=== PATIENT | female | born 1955 | race Hispanic/Latino ===

== ENCOUNTER 2018-02-18 09:00 | Emergency (ER) | payer OTHER ==
[2018-02-18] MEDS ORDERED: NA CHLORIDE 0.9% 1,000 ML ONE (09:08)
[2018-02-18] MEDS ORDERED: FENTANYL CITR 100 MCG/2 ML ONE (09:08)
[2018-02-18] MEDS ORDERED: TETANUS & DIPHTHERIA TOX,ADULT 0.5 ML VIAL ONE (09:12)
[2018-02-18 09:27] LABS: Absolute Lymphocytes (CBC) 2.4 K/uL (0.7-4.9); Absolute Monocytes 0.6 K/uL (0.1-1.3); Absolute Neutrophil 5.5 K/uL (1.8-8.0); Basophils % 0.9 % (0-1.3); Eosinophils % 1.3 % (0-4.4); Hematocrit 47.3 % (36.0-45.0); Lymphocytes % 27.7 % (15.3-44.8); MCH 28.9 pg (27.0-35.0); MCV 89.1 fL (80-100); RBC Red Blood Cell Count 5.31 M/uL (3.86-4.86)
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
[2018-02-18 09:52] LABS: Bicarbonate 25 mEq/L (21-31); Glucose Level 130 mg/dL (65-120); Potassium 3.6 mEq/L (3.6-5.0); Sodium Level 136 mEq/L (135-145)
[2018-02-18 09:53] LABS: BUN Blood Urea Nitrogen 18 mg/dL (6-20)
[2018-02-18 10:27] VITALS: TEMP 97.9
[2018-02-18 10:31] VITALS: BP 158/74; O2SAT 97
== END 2018-02-18 10:24 | disposition short-term general hospital (02) ==
LOC: ER 09:00
DX: T20.20XA Burn of second degree of head, face, and neck, unspecified site, initial encounter (principal); T31.0 Burns involving less than 10% of body surface; X10.2XXA Contact with fats and cooking oils, initial encounter; Y93.G3 Activity, cooking and baking; Y92.000 Kitchen of unspecified non-institutional (private) residence as the place of occurrence of the external cause; I10 Essential (primary) hypertension
CPT/HCPCS: 36415; 80048; 85025; 90714; 96361; 96374; 99285; J3010; J7030

== ENCOUNTER 2020-03-10 11:03 | Emergency (ER) | payer OTHER ==
[2020-03-10] MEDS ORDERED: MAGNE/ALUM HYDROXD 30 ML UCUP ONE (12:02)
[2020-03-10] MEDS ORDERED: LIDOCAINE VISCOUS 2% SOLN 15 ML UDC ONE (12:02)
[2020-03-10 12:17] LABS: Absolute Lymphocytes (CBC) 1.3 K/uL (0.7-4.9); Basophils % 0.8 % (0-1.3); Hematocrit 42.9 % (36.0-45.0); Lymphocytes % 13.8 % (15.3-44.8); MPV 8.5 fL (7.6-11.3)
--- OUTSIDE RECORDS SUMMARY | 2020-03-10 12:17 | XMS REPORT ---
:1955 Author Organization [facility] t Address [address] [place] [address] Dr. Bolaños [address] [place] [id number] Care Team Providers Name Role Phone Unavailable Unavailable Unavailable Problems This patient has no known problems. Allergies, Adverse Reactions, Alerts This patient has no known allergies or adverse reactions. Medications This patient has no known medications. Procedures This patient has no known procedures. Results This patient has no known results.
--- NOTE | 2020-03-10 12:35 | RAD REPORT ---
EXAM DESCRIPTION: RAD - Chest Single View - 03/10/2020 11:51 am CLINICAL HISTORY: epigastric pain COMPARISON: July 2009 TECHNIQUE: AP portable chest image was obtained 03/10/2020 11:51 am . FINDINGS: Lung volumes are low. No peripheral mass or consolidation. No significant failure or volum e overload. No hilar mass or mediastinal mass suspected. Interstitial pattern is prominent in part due to shallow inspiration. A minimal interstitial edema or infiltrate cannot be excluded. Heart and vasculature are normal. No measurable pleural effusion and no pneumothorax. No acute bony abnormality seen. No acute aortic findings suspected. IMPRESSION: No focal mass or consolidation peer Prominence of the interstitial pattern believed to be shallow inspiration artifact. Minimal interstit ial edema or infiltrate not excluded.
[2020-03-10 12:49] LABS: ALT/SGPT 22 U/L (12-78); AST/SGOT 23 U/L (15-37); Albumin 3.5 g/dL (3.4-5.0); Alkaline Phosphatase 80 U/L (45-117); BUN Blood Urea Nitrogen 12 mg/dL (7-18); Bicarbonate 25 mmol/L (21-32); Bilirubin Direct 0.2 mg/dL (0-0.2); Bilirubin Total 0.6 mg/dL (0.2-1.0); Glucose Level 103 mg/dL (74-106); Lipase 86 U/L (73-393); Potassium 3.8 mmol/L (3.5-5.1); Protein, Total 7.1 g/dL (6.4-8.2); Sodium Level 142 mmol/L (136-145); Troponin (Emerg Dept Use Only) < 0.02 ng/mL (0.0-0.045)
--- NOTE | 2020-03-10 13:01 | RAD REPORT ---
EXAM DESCRIPTION: CT - Angio Aorta For Dissection - 03/10/2020 12:44 pm CLINICAL HISTORY: Chest pain radiating to the back. epigastric and upper back pain COMPARISON: No comparisons TECHNIQUE: CT angiography of the aorta was performed with MIPs. All CT scans are performed using dose optimization technique as appropriate and may include automated exposure control or mA/KV adjustment according to patient size. FINDINGS: A left aortic arch is present with bovine branching pattern of the great vessels.No acute aortic finding is seen such as aneurysm, penetrating ulcer or dissection. The celiac axis, SMA, ASIA and renal arteries are patent. No evidence of pulmonary embolism. The lungs are clear. The liver demonstrates no focal mass or biliary dilatation.The spleen, pancreas, adrenal glands and k idneys are within normal limits for arterial phase imaging. No bowel obstruction, free fluid or abscess.No pathologic enlarged lymphadenopathy identified. No fracture or worrisome bone lesion seen. IMPRESSION: No acute aortic finding is demonstrated.
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
--- NOTE | 2020-03-10 13:30 | ER ---
Nurse's Notes [facility] Name: Karma Liu Age: 64 yrs Sex: Female : 1955 Arrival Date: 03/10/2020 Time: 11:07 Bed 14 Private MD: Diagnosis: Upper abdominal pain, unspecified;Gastritis, unspecified Presentation: 03/10 11:25 Chief complaint: Patient states: sharp, intermittent epigastric pain and pain to upper ss back across shoulders that began 2 days ago. Is worse today. Coronavirus screen: Proceed with normal triage. Patient denies a cough. Patient denies shortness of breath or difficulty breathing. Patient denies measured and/or subjective temperature greater than 100.4F prior to today's visit. Patient denies travel on a cruise ship or to a country the [facility] currently lists as an affected area. Patient denies contact with known and/or suspected case of COVID-19. Ebola Screen: Patient denies exposure to infectious person. Patient denies travel to an Ebola-affected area in the 21 days before illness onset. Initial Sepsis Screen: Does the patient meet any 2 criteria? No. Patient's initial sepsis screen is negative. Does the patient have a suspected source of infection? No. Patient's initial sepsis screen is negative. Risk Assessment: Do you want to hurt yourself or someone else? Patient reports no desire to harm self or others. Onset of symptoms was March 08, 2020. 11:25 Method Of Arrival: Ambulatory 11:25 Acuity: ANEESH 3 ss Historical: - Allergies: 11:27 NKA; ss - Home Meds: 11:27 losartan Oral once daily [Active]; ss - PMHx: 11:27 Hypertension; ss - PSHx: 11:27 Hysterectomy; Cholecystectomy; ss - Immunization history:: Adult Immunizations up to date. - Social history:: Smoking status: Patient denies any tobacco usage or history of. - Family history:: not pertinent. - Hospitalizations: : No recent hospitalization is reported. Screenin:51 Abuse screen: Denies threats or abuse. Nutritional screening: No deficits noted. Tuberculosis screening: No symptoms or risk factors identified. Fall Risk None identified. Assessment: 11:55 General: Appears in no apparent distress. Behavior is calm, cooperative. Pain: Complains of pain in xyphoid area Pain radiates to left scapular area, right scapular area and thoracic area Pain began 2-3 days ago. Alleviated by nothing. Aggravated by eating. Neuro: Level of Consciousness is awake, alert, Oriented to person, place, time, situation. Cardiovascular: Denies chest pain, Heart tones S1 S2 present Capillary refill < 3 seconds Patient's skin is warm and dry. Pulses are palpable in right radial artery and left radial artery. Respiratory: Airway is patent Respiratory effort is even, unlabored, Respiratory pattern is regular, symmetrical, Denies shortness of breath. GI: Bowel sounds present X 4 quads. Abd is non tender X 4 quads Reports epigastric pain, Patient currently denies nausea, vomiting. : No signs and/or symptoms were reported regarding the genitourinary system. EENT: No signs and/or symptoms were reported regarding the EENT system. Derm: No signs and/or symptoms reported regarding the dermatologic system. Musculoskeletal: No signs and/or symptoms reported regarding the musculoskeletal system. 12:25 Reassessment: Pt to CT scan at this time via . 12:45 Reassessment: Pt returned from CT scan. Vital Signs: 11:25 BP 147 / 72; Pulse 83; Resp 15; Temp 97.9(TE); Pulse Ox 96% on R/A; Weight 86.18 kg; Height 5 ft. 4 in. (162.56 cm); Pain 4/10; 12:00 BP 127 / 65; Pulse 66; Resp 11; Pulse Ox 97% ; ah 13:00 BP 128 / 68; Pulse 68; Resp 14; Pulse Ox 97% ; ah 11:25 Body Mass Index 32.61 (86.18 kg, 162.56 cm) ED Course: 11:07 Patient arrived in ED. mr 11:26 Triage completed. ss 11:27 Arm band placed on right wrist. ss 11:28 Pritesh Eaton MD is Attending Physician. rn 11:39 Aminah Francis, MILLY is Primary Nurse. 11:50 Inserted saline lock: 20 gauge in right forearm, using aseptic technique. Patient ah maintains SpO2 saturation greater than 95% on room air. 11:52 XRAY Chest (1 view) In Process Unspecified. EDMS 12:44 CT Aorta for Dissection In Process Unspecified. EDMS 13:29 Bryan Elizalde MD is Referral Physician. rn 13:52 Patient has correct armband on for positive identification. Placed in gown. Call light in reach. cro on. Pulse ox on. NIBP on. 13:52 No provider procedures requiring assistance completed. IV discontinued, intact, bleeding controlled, No redness/swelling at site. Pressure dressing applied. Administered Medications: 12:00 Drug: GI Cocktail without - (Maalox Suspension 30 ml, Lidocaine Liquid 2 % 15 ah ml) Route: PO; 13:00 Follow up: Response: No adverse reaction Outcome: 13:29 Discharge ordered by . rn 13:50 Discharged to home ambulatory. 13:50 Condition: good 13:50 Discharge instructions given to patient, Instructed on discharge instructions, follow up and referral plans. Demonstrated understanding of instructions, follow-up care. 13:56 Patient left the ED. Signatures: Dispatcher [employer] [facility] Mirian Hardwick Roman, MD MD rn Smirch, Shelby, RN RN ss Harris, Amy, RN RN
[2020-03-10 14:12] VITALS: TEMP 97.9
[2020-03-10 14:13] VITALS: O2SAT 97
[2020-03-10 14:14] VITALS: BP 128/68
--- NOTE | 2020-03-11 07:02 | EKG ---
Test Date: 2020-03-10 Test Time: 11:47:06 Florist Designer: MALLIKA MEASUREMENT RESULTS: Intervals: Rate: 63 VT: 186 QRSD: 90 QT: 418 QTc: 427 [place]: P: 43 VT: 186 QRS: 8 T: 44 INTERPRETIVE STATEMENTS: Normal sinus rhythm Normal ECG Compared to ECG 08/14/2009 09:06:57 Sinus bradycardia no longer present Electronically Signed On 03-11-20 07:00:15 CDT by Shayan Simmons
== END 2020-03-10 13:56 | disposition home or self-care (01) ==
LOC: ER 11:03
DX: K29.70 Gastritis, unspecified, without bleeding (principal); I10 Essential (primary) hypertension
CPT/HCPCS: 93005; 85025; 80048; 36415; 82565; 80076; 84484; 83690; 71275; 74175; 71045; Q9967; 99285

== ENCOUNTER → 2023-12-29 | Emergency (ER) | payer OTHER ==
[~2023-12-29] MED LIST: DIPHENHYDRAMINE 50 MG/ML VIAL ONE; EPINEPHRINE 1 MG/ML VIAL ONE; FAMOTIDINE 20 MG/2 ML VIAL IV ONE; METHYLPREDNISOLONE 125 MG INJ ONE
--- OUTSIDE RECORDS SUMMARY | 2023-12-29 09:12 | XMS REPORT | Continuity of Care Document ---
Author Name Unknown Address [address] [place] [address] thconnect Address [address] [place] [address] Care Team Providers Care Pipe Layer Name Role Phone Unavailable Unavailable Unavailable
[2023-12-29 09:57] LABS: Absolute Lymphocytes (CBC) 2.5 K/uL (0.7-4.9); Basophils % 0.4 % (0-1.3); Hematocrit 46.2 % (36.0-45.0); Lymphocytes % 38.3 % (15.3-44.8); MCV 89.3 fL (80-100); MPV 8.9 fL (7.6-11.3); Platelets 359 thou/uL (152-406); RBC Red Blood Cell Count 5.18 M/uL (3.86-4.86)
[2023-12-29 10:10] LABS: Anion Gap 9.4 mEq/L (5.0-15.0); Potassium 3.4 mEq/L (3.5-5.1)
--- NOTE | 2023-12-29 12:02 | ER ---
Nurse's Notes [facility] Name: Karma Liu Age: 68 yrs Sex: Female : 1955 Arrival Date: 12/29/2023 Time: 09:09 Bed 11 Private MD: Diagnosis: Anaphylaxis;Penicillin allergy Presentation: 12/28 09:09 Method Of Arrival: Wheelchair rs5 09:10 Acuity: ANEESH 1 aa5 09:10 Onset of symptoms was December 29, 2023. aa5 09:10 Chief complaint: Pt's states "she had dental work yesterday and was prescribed aa5 amoxicillin, she took it this morning and now she can barely speak because she says her throat is swollen". Lip swelling noted, pt's skin is flushed, pt's voice is soft. MD to bedside. Coronavirus screen: At this time, the client does not indicate any symptoms associated with coronavirus-19. Ebola Screen: Patient denies travel to an Ebola-affected area in the 21 days before illness onset. Onset: The symptoms/episode began/occurred acutely. Anaphylaxis evaluation, lip swelling noted, pt reports feels like throat is swollen. Initial Sepsis Screen: Does the patient meet any 2 criteria? No. Patient's initial sepsis screen is negative. Does the patient have a suspected source of infection? No. Patient's initial sepsis screen is negative. Risk Assessment: Do you want to hurt yourself or someone else? Patient reports no desire to harm self or others. 09:10 Method Of Arrival: Wheelchair aa5 Historical: - Allergies: 09:10 Amoxicillin; aa5 - PMHx: 09:10 Hypertensive disorder; Hypercholesterolemia; aa5 - Immunization history:: Adult Immunizations unknown. - Social history:: Smoking status: Patient denies any tobacco usage or history of. Screenin:20 [facility] ED Fall Risk Assessment (Adult) History of falling in the last 3 months, rs5 including since admission No falls in past 3 months (0 pts) Confusion or Disorientation No (0 pts) Intoxicated or Sedated No (0 pts) Impaired Gait No (0 pts) Mobility Assist Device Used No (0 pt) Altered Elimination No (0 pt) Score/Fall Risk Level 0 - 2 = Low Risk Oriented to surroundings, Maintained a safe environment. Abuse screen: Denies threats or abuse. Nutritional screening: No deficits noted. Tuberculosis screening: No symptoms or risk factors identified. Assessment: 09:10 General: Appears distressed, uncomfortable, Behavior is agitated, anxious. Pain: Denies rs5 pain. Neuro: Level of Consciousness is awake, alert, obeys commands, Oriented to person, place, time, situation. Cardiovascular: Rhythm is regular. Respiratory: Airway is patent Respiratory effort is labored, Respiratory pattern is symmetrical, GI: Abdomen is round non-distended, Abd is soft and non tender X 4 quads. : No signs and/or symptoms were reported regarding the genitourinary system. EENT: No signs and/or symptoms were reported regarding the EENT system. Derm: Skin is intact, Skin is red, pt states "I feel itchy all over". Musculoskeletal: Circulation, motion, and sensation intact. 09:25 Reassessment: Patient states feeling better. Patient states symptoms have improved. rs5 Cardiovascular: Rhythm is regular. Respiratory: Respiratory effort is even, unlabored, Respiratory pattern is regular, symmetrical. Derm: Skin is intact, Skin is pink, warm \\T\\ dry. Musculoskeletal: Circulation, motion, and sensation intact. Musculoskeletal: Range of motion: limited in all extremities. 09:38 Reassessment: No changes from previously documented assessment. rs5 11:05 Reassessment: Patient and/or family updated on plan of care and expected duration. Pain rs5 level reassessed. Patient is alert, oriented x 3, equal unlabored respirations, skin warm/dry/pink. Patient denies pain at this time. Patient states feeling better. Patient states symptoms have improved. 11:38 Reassessment: Patient is alert, oriented x 3, equal unlabored respirations, skin aa5 warm/dry/pink. Patient states feeling better. Patient states symptoms have improved. Pt reports tongue and lip swelling have decreased, reports feet feel itchy, MD was notified. Pt's family at bedside. . 12:16 Reassessment: No changes from previously documented assessment. rs5 Vital Signs: 09:10 BP 127 / 83; Pulse 80; Resp 16 S; Temp 98(TE); Pulse Ox 96% on R/A; Weight 79.38 kg aa5 (R); Height 5 ft. 3 in. (R); 09:22 BP 127 / 83 RA Sitting (auto/reg); Pulse 98 MON; Resp 22 S; Temp 97.6(TE); Pulse Ox 97% jg11 on R/A; 09:41 BP 130 / 82; Pulse 80; Resp 19; Temp 97.7(O); Pulse Ox 98% on R/A; rs5 11:15 BP 120 / 73; Pulse 71; Resp 18; Pulse Ox 99% on R/A; rs5 12:16 BP 122 / 75; Pulse 76; Resp 18; Pulse Ox 99% on R/A; rs5 09:10 Body Mass Index 31.00 (79.38 kg, 160.02 cm) aa5 ED Course: 09:10 Patient arrived in ED. mg5 09:10 Danial Yanes DO is Attending Physician. ms3 09:10 Inserted saline lock: 20 gauge in left antecubital area, using aseptic technique. Blood rs5 collected. 09:10 Arm band placed on Patient placed in an exam room, on a stretcher. aa5 09:17 Inserted saline lock: 22 gauge in left hand, using aseptic technique. rs5 09:20 No provider procedures requiring assistance completed. rs5 09:20 Patient has correct armband on for positive identification. Placed in gown. Bed in low rs5 position. Call light in reach. Side rails up X2. 09:33 Magdy Murphy, RN is Primary Nurse. rs5 09:36 Triage completed. aa5 09:49 EKG done. jg11 12:00 Jason Calixto DO is Referral Physician. ms3 12:17 IV discontinued, intact, bleeding controlled, No redness/swelling at site. Pressure rs5 dressing applied. Administered Medications: 09:11 Drug: MethylPrednisoLONE IVP 125 mg IVP once Route: IVP; Site: left antecubital; rs5 09:22 Follow up: Response: No adverse reaction rs5 09:11 Drug: diphenhydrAMINE IVP 50 mg IVP once Route: IVP; Site: left antecubital; rs5 09:22 Follow up: Response: No adverse reaction rs5 09:11 Drug: Famotidine IVP 20 mg IVP once; dilute with 10 mL 0.9% NaCl; give over 2 minutes rs5 Route: IVP; Site: left antecubital; 09:22 Follow up: Response: No adverse reaction rs5 09:17 Drug: EPINEPHrine 1:1000 Sub-Q 1:1,000 0.3 ml Sub-Q once; GIVE IM {Note: given to right aa5 deltoid per MD VO. .} Route: Sub-Q; Site: left upper arm; 09:30 Follow up: Response: No adverse reaction rs5 Medication: 09:41 VIS not applicable for this client. rs5 Outcome: 12:01 Discharge ordered by MD. ms3 12:17 Discharged to home ambulatory, rs5 12:17 Condition: stable 12:17 Discharge instructions given to patient, family, Instructed on discharge instructions, follow up and referral plans. medication usage, Demonstrated understanding of instructions, follow-up care, medications, 12:17 Patient left the ED. rs5 Signatures: Tricia Villarreal, RN RN aa5 Danial Yanes DO DO ms3 Magdy Murphy RN RN rs5 Saskia Munguia 5 Otto Donovan jg11 Corrections: (The following items were deleted from the chart) 09:34 09:11 EPINEPHrine 1:1000 Sub-Q 1:1,000 0.3 ml Sub-Q in left upper arm rs5 aa5 09:35 09:17 EPINEPHrine 1:1000 Sub-Q 1:1,000 0.3 ml Sub-Q in left upper arm aa5 aa5
--- NOTE | 2023-12-29 12:02 | EDPHYS ---
Physician Documentation [facility] Name: Karma Liu Age: 68 yrs Sex: Female : 1955 Arrival Date: 12/29/2023 Time: 09:09 Bed 11 Private MD: ED Physician Danial Yanes HPI: 12/28 09:26 This 68 yrs old Female presents to ER via Unassigned with complaints of ms3 Allergic Reaction, Breathing Difficulty. 09:26 68-year-old female with past medical history of hypertension hyperlipidemia presents to [facility] the emergency department for itching, swelling lips, difficulty swallowing, shortness of breath that began approximate 20 minutes prior to arrival after taking an amoxicillin tablet. Patient had tooth removed yesterday and was given a prescription for amoxicillin. 10 minutes after taking the tablet of amoxicillin patient began having itching, swelling, difficulty swallowing and shortness of breath. Patient denies any pain. Patient denies any alleviating or inciting factors. Historical: - Allergies: 09:10 Amoxicillin; aa5 - PMHx: 09:10 Hypertensive disorder; Hypercholesterolemia; aa5 - Immunization history:: Adult Immunizations unknown. - Social history:: Smoking status: Patient denies any tobacco usage or history of. ROS: 09:26 Constitutional: Negative for fever, and chills. Neck: Negative for injury, pain, and ms3 swelling, Cardiovascular: Negative for chest pain, and palpitations. Respiratory: Negative for shortness of breath, cough, wheezing, and pleuritic chest pain, Abdomen/GI: Negative for abdominal pain, nausea, vomiting, diarrhea, and constipation, : MS/Extremity: Negative for injury and deformity, : ENT: Positive for Tongue swelling, : Skin: Positive for rash, Exam: :26 Constitutional: This is a well developed, well nourished patient who is awake, alert, ms3 and in no acute distress. Head/Face: Normocephalic, atraumatic. Chest/axilla: Normal chest wall appearance and motion. Nontender with no deformity. Cardiovascular: Regular rate and rhythm with a normal S1 and S2. No gallops, murmurs, or rubs. Normal PMI, no JVD. No pulse deficits. Respiratory: Lungs have equal breath sounds bilaterally, clear to auscultation and percussion. No rales, rhonchi or wheezes noted. No increased work of breathing, no retractions or nasal flaring. 09:26 ENT: Posterior pharynx: swelling, that is moderate, Tongue swelling. 09:26 Skin: Appearance: Color: erythematous, 09:40 ECG was reviewed by the Attending Physician. ms3 Vital Signs: 09:10 BP 127 / 83; Pulse 80; Resp 16 S; Temp 98(TE); Pulse Ox 96% on R/A; Weight 79.38 kg aa5 (R); Height 5 ft. 3 in. (R); 09:22 BP 127 / 83 RA Sitting (auto/reg); Pulse 98 MON; Resp 22 S; Temp 97.6(TE); Pulse Ox 97% jg11 on R/A; 09:41 BP 130 / 82; Pulse 80; Resp 19; Temp 97.7(O); Pulse Ox 98% on R/A; rs5 11:15 BP 120 / 73; Pulse 71; Resp 18; Pulse Ox 99% on R/A; rs5 12:16 BP 122 / 75; Pulse 76; Resp 18; Pulse Ox 99% on R/A; rs5 09:10 Body Mass Index 31.00 (79.38 kg, 160.02 cm) aa5 MDM: 09:22 Patient medically screened. ms3 09:26 Differential diagnosis: anaphylaxis, angioedema, bronchospasm. ms3 12:01 Data reviewed: vital signs, nurses notes, lab test result(s), and as a result, I will ms3 discharge patient. I considered the following discharge prescriptions or medication management in the emergency department Medications were administered in the Emergency Department. See MAR. Historians other than the Patient: Spouse/Significant Other: Patient's . Care significantly affected by the following chronic conditions: Hypertension, HLD. Counseling: I had a detailed discussion with the patient and/or guardian regarding the historical points, exam findings, and any diagnostic results supporting the discharge/admit diagnosis, lab results, the need for outpatient follow up, to return to the emergency department if symptoms worsen or persist or if there are any questions or concerns that arise at home. Special discussion: I discussed with the patient/guardian in detail that at this point there is no indication for admission to the hospital. It is understood, however, that if the symptoms persist or worsen the patient needs to return immediately for re-evaluation. ED course: On reevaluation patient symptoms have improved, patient is alert and oriented x 4, no apparent distress, nontoxic-appearing, speaking full sentences. Patient to follow-up with primary care physician 2 to 3 days. Patient understands and agrees with plan. All questions were answered. Return precautions discussed include worsening symptoms, or any other concerns. 12/28 09:47 Order name: CBC with Diff; Complete Time: 10:13 ms3 12/28 09:47 Order name: BMP; Complete Time: 10:13 ms3 12/28 09:47 Order name: EKG; Complete Time: 09:47 ms3 12/28 09:47 Order name: EKG - Nurse/Tech; Complete Time: :48 ms3 EC:40 Rate is 84 beats/min. Rhythm is regular. Right axis deviation noted. KS interval is ms3 normal. QRS interval is normal. Clinical impression: NSR w/ Non-specific ST/T Changes. Interpreted by me. Reviewed by me. Administered Medications: 09:11 Drug: MethylPrednisoLONE IVP 125 mg IVP once Route: IVP; Site: left antecubital; rs5 09:22 Follow up: Response: No adverse reaction rs5 09:11 Drug: diphenhydrAMINE IVP 50 mg IVP once Route: IVP; Site: left antecubital; rs5 09:22 Follow up: Response: No adverse reaction rs5 09:11 Drug: Famotidine IVP 20 mg IVP once; dilute with 10 mL 0.9% NaCl; give over 2 minutes rs5 Route: IVP; Site: left antecubital; 09:22 Follow up: Response: No adverse reaction rs5 09:17 Drug: EPINEPHrine 1:1000 Sub-Q 1:1,000 0.3 ml Sub-Q once; GIVE IM {Note: given to right aa5 deltoid per MD VO. .} Route: Sub-Q; Site: left upper arm; 09:30 Follow up: Response: No adverse reaction rs5 Disposition Summary: 12/29/23 12:01 Discharge Ordered Notes: Location: Home ms3 Condition: Stable ms3 Diagnosis - Anaphylaxis ms3 - Penicillin allergy ms3 Followup: ms3 - With: Jason Calixto, DO - When: 2 - 3 days - Reason: Recheck today's complaints Discharge Instructions: - Discharge Summary Sheet ms3 - Anaphylactic Reaction, Adult ms3 Forms: - Medication Reconciliation Form ms3 - Thank You Letter ms3 - Antibiotic Education ms3 - Prescription Opioid Use ms3 - Patient Portal Instructions ms3 - Leadership Thank You Letter ms3 Prescriptions: - Prednisone 20 mg Oral Tablet - take 3 tablets ORAL route once daily for 5 days; 15 tablet; Refills: 0, Product ms3 Selection Permitted Critical care time excluding procedures: 12:01 Critical care time: Bedside Care: 30 minutes, Family Intervention: 5 minutes. Total ms3 time: 35 minutes Signatures: Dispatcher [employer] EDTricia Lu, RN RN aa5 Danial Yanes, DO ms3 Magdy Murphy RN RN rs5
[2023-12-29 12:26] VITALS: TEMP 97.7
[2023-12-29 12:54] VITALS: BP 122/75; O2SAT 99
== END ==
LOC: ER 09:09
DX: T88.6XXA Anaphylactic reaction due to adverse effect of correct drug or medicament properly administered, initial encounter (principal); T36.0X5A Adverse effect of penicillins, initial encounter; Z88.0 Allergy status to penicillin; I10 Essential (primary) hypertension
CPT/HCPCS: 93005; 85025; 80048; 36415; 96375; 96372; 96374; 99284; J1200; J0171; J2930

== ENCOUNTER 2024-10-06 17:49 | Inpatient (IN) | payer OTHER ==
--- OUTSIDE RECORDS SUMMARY | 2024-10-06 17:51 | XMS REPORT | Continuity of Care Document ---
Author Name Unknown Address [address] [place] [address] thconnect Address [address] [place] [address] Care Team Providers Care Gold Wheel Blocker And Polisher Name Role Phone Unavailable Unavailable Unavailable
[2024-10-06 18:39] LABS: Absolute Basophils 0.1 K/uL (0-0.5); Absolute Eosinophils 0.1 K/uL (0-0.5); Absolute Lymphocytes (CBC) 1.3 K/uL (0.7-4.9); Absolute Monocytes 0.5 K/uL (0.1-1.3); Basophils % 1.1 % (0-1.3); Eosinophils % 1.1 % (0-4.4); Hematocrit 41.4 % (36.0-45.0); Hemoglobin 13.9 g/dL (12.0-15.0); Lymphocytes % 16.5 % (15.3-44.8); MCH 29.7 pg (27.0-35.0); MCHC 33.5 g/dL (32.0-36.0); MCV 88.8 fL (80-100); MPV 8.4 fL (7.6-11.3); Monocytes % 6.3 % (3.3-12.3); Nucleated Red Blood Cells % 0.1 % (0-0); Platelets 259 thou/uL (152-406); RBC Red Blood Cell Count 4.67 M/uL (3.86-4.86); Red Cell Distribution Width 14.3 % (12.1-15.2)
[2024-10-06 18:46] LABS: D-Dimer 0.493 FEUug/mL (0-0.500); PT Prothrombin Time 9.8 SECONDS (9.4-12.5); Protime INR 0.87
--- NOTE | 2024-10-06 18:53 | RAD REPORT ---
EXAMINATION: ONE VIEW CHEST XR CLINICAL INDICATION: PALPITATIONS TECHNIQUE: Frontal chest projection is submitted. Examination is limited by patient positioning and t echnique. COMPARISON: 03/10/2020 FINDINGS: The lungs are diffusely emphysematous but grossly clear. The heart is upper limit of normal in size. No displaced fractures identified. IMPRESSION: COPD without an acute process suspected.
[2024-10-06 18:57] LABS: Albumin 3.3 g/dL (3.4-5.0); Anion Gap 6.2 mEq/L (5.0-15.0); Bilirubin Direct 0.2 mg/dL (0-0.2); Bilirubin Indirect, Calculated 0.2 mg/dL (0.2-0.8); Bilirubin Total 0.4 mg/dL (0.2-1.0); Globulin 3.2 g/dL (2.3-3.5); Magnesium 2.2 mg/dL (1.6-2.4); Potassium 3.2 mEq/L (3.5-5.1); Protein, Total 6.5 g/dL (6.4-8.2)
[2024-10-06 19:00] LABS: Troponin High Sensitivity 146.7 pg/mL (<58.9)
[2024-10-06] MEDS ORDERED: ENOXAPARIN 80 MG/0.8 ML SQ ONE (20:04)
[2024-10-06] MEDS ORDERED: ATORVASTATIN 40 MG TAB ONE (20:04)
[2024-10-06] MEDS ORDERED: ASPIRIN 81 MG CHEWABLE TABLET ONE (20:04)
[2024-10-06] MEDS ORDERED: LOSARTAN POTASSIUM 50 MG TABLET ONE (20:05)
--- NOTE | 2024-10-06 20:06 | ER ---
Nurse's Notes [facility] Name: Karma Liu Age: 69 yrs Sex: Female : 1955 Arrival Date: 10/06/2024 Time: 17:49 Bed 8 Private MD: Diagnosis: NSTEMI Presentation: 10/06 17:54 Chief complaint: EMS states: called for elevated bp and headache, patient takes bp meds ko1 but it hasn't gone down today. Coronavirus screen: At this time, the client does not indicate any symptoms associated with coronavirus-19. Ebola Screen: No symptoms or risks identified at this time. Initial Sepsis Screen: Does the patient meet any 2 criteria? No. Patient's initial sepsis screen is negative. Does the patient have a suspected source of infection? No. Patient's initial sepsis screen is negative. Risk Assessment: Do you want to hurt yourself or someone else? Patient reports no desire to harm self or others. Onset of symptoms was October 06, 2024. Care prior to arrival: IV initiated. 20 GA, in the left antecubital area. 17:54 Method Of Arrival: EMS: [facility] ko1 17:54 Acuity: ANEESH 3 ko1 Triage Assessment: 17:56 General: Appears in no apparent distress. Behavior is cooperative, anxious. Pain: ko1 Complains of pain in top of head and forehead. EENT: No deficits noted. Neuro: Reports headache in entire. Cardiovascular: No deficits noted. Respiratory: No deficits noted. GI: No deficits noted. : No deficits noted. Derm: No deficits noted. Musculoskeletal: No deficits noted. Historical: - Allergies: 17:56 Amoxicillin; ko1 - PMHx: 17:56 Hypercholesterolemia; Hypertension; Hypertensive disorder; ko1 - Immunization history:: Adult Immunizations up to date. - Infectious Disease History:: Denies. - Social history:: Smoking status: Patient denies any tobacco usage or history of. Screenin:57 [facility] ED Fall Risk Assessment (Adult) History of falling in the last 3 months, ko1 including since admission No falls in past 3 months (0 pts) Confusion or Disorientation No (0 pts) Intoxicated or Sedated No (0 pts) Impaired Gait No (0 pts) Mobility Assist Device Used No (0 pt) Altered Elimination No (0 pt) Score/Fall Risk Level 0 - 2 = Low Risk Oriented to surroundings, Maintained a safe environment, Educated pt \T\ family on fall prevention, incl call for assistance when getting out of bed, Assessed \T\ reinforced patient's understanding of fall precautions, Hourly rounding (assess needs \T\ fall precautionary measures) done. Abuse screen: Denies threats or abuse. Denies injuries from another. Nutritional screening: No deficits noted. Tuberculosis screening: No symptoms or risk factors identified. Assessment: 17:57 Reassessment: see triage note. ko1 19:14 General: Appears in no apparent distress. uncomfortable, Behavior is calm, cooperative, cp4 appropriate for age. 19:14 Neuro: Level of Consciousness is awake, alert, obeys commands, Oriented to person, cp4 place, time, situation. Cardiovascular: Patient's skin is warm and dry. Respiratory: Airway is patent Respiratory effort is even, unlabored. GI: No signs and/or symptoms were reported involving the gastrointestinal system. : No signs and/or symptoms were reported regarding the genitourinary system. EENT: No signs and/or symptoms were reported regarding the EENT system. Derm: No signs and/or symptoms reported regarding the dermatologic system. Musculoskeletal: No signs and/or symptoms reported regarding the musculoskeletal system. 20:00 Reassessment: Patient appears in no apparent distress at this time. Patient and/or cp4 family updated on plan of care and expected duration. Pain level reassessed. Patient is alert, oriented x 3, equal unlabored respirations, skin warm/dry/pink. 21:00 Reassessment: Patient appears in no apparent distress at this time. Patient and/or cp4 family updated on plan of care and expected duration. Pain level reassessed. Patient is alert, oriented x 3, equal unlabored respirations, skin warm/dry/pink. Vital Signs: 17:54 BP 165 / 72; Pulse 58; Resp 16; Temp 98.1; Pulse Ox 100% on R/A; ko1 18:35 BP 148 / 70; Pulse 55; Resp 16; Pulse Ox 99% ; ko1 20:00 Weight 78.47 kg; cp4 21:00 BP 147 / 71; Pulse 64; Resp 18; Pulse Ox 97% ; cp4 ED Course: 17:51 Patient arrived in ED. iw 17:53 Dario Sparks, MILLY is Primary Nurse. bp 17:56 Rad[facility] Ellis F[facility]-C [facility]. kb 17:56 Ebenezer Enrique MD is Attending Physician. kb 17:56 Triage completed. ko1 17:56 Arm band placed on right wrist. Patient placed in an exam room, on a stretcher, on ko1 radiation monitor, on pulse oximetry, Patient notified of wait time. 17:57 Patient has correct armband on for positive identification. Allergy band placed. Bed in ko1 low position. Call light in reach. Side rails up X2. Provided Education on: labs. Pulse ox on. NIBP on. Door closed. Noise minimized. Lights dimmed. Warm blanket given. Pillow given. 17:57 No provider procedures requiring assistance completed. Maintain EMS IV. Dressing ko1 intact. Good blood return noted. Site clean \T\ dry. Gauge \T\ site: 20g left FA. Flushed with 10 mL NS. 18:00 Nancy Demarco RN is Primary Nurse. ko1 18:35 Initial lab(s) drawn, by me, sent to lab. EKG done, by ED staff, reviewed by Radha FREEMAN. 18:49 XRAY Chest (1 view) In Process Unspecified. EDMS 19:05 Primary Nurse role handed off by Nancy Demarco RN ko1 19:07 Dario Sparks, RN is Primary Nurse. bp 19:14 Patient admitted, IV remains in place. cp4 20:05 Willie Garcia MD is Hospitalizing Provider. kb Administered Medications: 20:11 Drug: Aspirin PO Chewable Tablet 324 mg PO once; 81 mg tablets x 4 Route: PO; cp4 21:03 Follow up: Response: No adverse reaction cp4 20:11 Drug: Enoxaparin Sub-Q 1 mg/kg Sub-Q once Route: Sub-Q; Site: abdomen; cp4 21:03 Follow up: Response: No adverse reaction cp4 20:11 Drug: Atorvastatin PO 40 mg PO once Route: PO; cp4 21:03 Follow up: Response: No adverse reaction cp4 20:11 Drug: Losartan PO 50 mg PO once Route: PO; cp4 21:03 Follow up: Response: No adverse reaction cp4 Medication: 17:57 VIS not applicable for this client. ko1 Outcome: 20:05 Decision to Hospitalize by Provider. kb 22:16 Admitted to Med/surg accompanied by tech, via stretcher, with chart, cp4 22:16 Condition: stable 22:16 Instructed on the need for admit, 22:26 Patient left the ED. cp4 Signatures: Dispatcher [employer] EDMS Radha Ellis, PROFESSOR OF EXERCISE SCIENCE-C PROFESSOR OF EXERCISE SCIENCE-Lilliana Mcguire RN RN iw Peltier, Brian RN Nancy Bobo RN RN ko1 Potter, Christina cp4
--- NOTE | 2024-10-06 20:06 | EDPHYS ---
Physician Documentation [facility] Name: Karma Liu Age: 69 yrs Sex: Female : 1955 Arrival Date: 10/06/2024 Time: 17:49 Bed 8 Private MD: ED Physician Ebenezer Enrique HPI: 10/07 00:25 This 69 yrs old Female presents to ER via EMS with complaints of Blood kb Pressure Problem. 00:25 Pt is a 69 year old female who presents for high blood pressure, shortness of breath on kb exertion, and palpitations that started yesterday. States she developed a headache today as well. Reports she normally rides her bike for 30 minutes, but was short of breath after only 5 minutes today. denies chest pain. . Historical: - Allergies: 10/06 17:56 Amoxicillin; ko1 - PMHx: 17:56 Hypercholesterolemia; Hypertension; Hypertensive disorder; ko1 - Immunization history:: Adult Immunizations up to date. - Infectious Disease History:: Denies. - Social history:: Smoking status: Patient denies any tobacco usage or history of. ROS: 10/07 00:20 Constitutional: As per HPI kb Exam: 00:20 Constitutional: This is a well developed, well nourished patient who is awake, alert, kb and in no acute distress. Head/Face: Normocephalic, atraumatic. ENT: Moist Mucous membranes Cardiovascular: Regular rate Respiratory: Respirations even and unlabored. No increased work of breathing. Talking in full sentences Abdomen/GI: Soft, non-tender. No distention Skin: Warm, dry with normal turgor. Normal color. MS/ Extremity: Pulses equal, no cyanosis. Neurovascular intact. Full, normal range of motion. Neuro: Awake and alert, GCS 15, oriented to person, place, time, and situation. 00:30 ECG was reviewed by the Attending Physician. kb Vital Signs: 10/06 17:54 BP 165 / 72; Pulse 58; Resp 16; Temp 98.1; Pulse Ox 100% on R/A; ko1 18:35 BP 148 / 70; Pulse 55; Resp 16; Pulse Ox 99% ; ko1 20:00 Weight 78.47 kg; cp4 21:00 BP 147 / 71; Pulse 64; Resp 18; Pulse Ox 97% ; cp4 MDM: 17:56 Medical Screening Exam initiated kb 10/07 00:21 Differential diagnosis: acute mi, arrhythmia, hypertensive crisis. Data reviewed: vital kb signs, nurses notes. Consideration of Admission/Observation Patient was admitted/placed on observation. Escalation of care including admission/observation considered. Management of patient was discussed with the following: Vp Product: Dr Ferreira accepts pt for consult. Primary Care Provider: Dr Garcia accepts pt for inpatient admission. Wants lovenox 1mg/kg Q 12 hours, aspirin 81mg daily, losartan 50mg BID, amlodipine 5mg BID (hold for systolic less than 130), atorvastatin 40mg Q HS, and consult to cardiology. . Historians other than the Patient: EMS: [facility]. Counseling: I had a detailed discussion with the patient and/or guardian regarding the historical points, exam findings, and any diagnostic results supporting the discharge/admit diagnosis, lab results, radiology results, the need for outpatient follow up, a family practitioner, to return to the emergency department if symptoms worsen or persist or if there are any questions or concerns that arise at home. 10/06 17:56 Order name: Basic Metabolic Panel; Complete Time: 19:05 kb 10/06 17:56 Order name: CBC with Diff; Complete Time: 18:45 kb 10/06 17:56 Order name: D-Dimer; Complete Time: 18:59 kb 10/06 17:56 Order name: LFT's; Complete Time: 19:05 kb 10/06 17:56 Order name: Magnesium; Complete Time: 19:05 kb 10/06 17:56 Order name: NT PRO-BNP; Complete Time: 19:05 kb 10/06 17:56 Order name: PT-INR; Complete Time: 18:59 kb 10/06 17:56 Order name: Troponin HS; Complete Time: 19:05 kb 10/06 17:56 Order name: XRAY Chest (1 view); Complete Time: 18:59 kb 10/06 17:56 Order name: Cardiac monitoring; Complete Time: 18:06 kb 10/06 17:56 Order name: EKG - Nurse/Tech; Complete Time: 18:35 kb 10/06 17:56 Order name: IV Saline Lock; Complete Time: 18:06 kb 10/06 17:56 Order name: Labs collected and sent; Complete Time: 18:35 kb 10/06 17:56 Order name: O2 Per Protocol; Complete Time: 18:06 kb 10/06 17:56 Order name: O2 Sat Monitoring; Complete Time: 18:06 kb Administered Medications: 10/06 20:11 Drug: Aspirin PO Chewable Tablet 324 mg PO once; 81 mg tablets x 4 Route: PO; cp4 21:03 Follow up: Response: No adverse reaction cp4 20:11 Drug: Enoxaparin Sub-Q 1 mg/kg Sub-Q once Route: Sub-Q; Site: abdomen; cp4 21:03 Follow up: Response: No adverse reaction cp4 20:11 Drug: Atorvastatin PO 40 mg PO once Route: PO; cp4 21:03 Follow up: Response: No adverse reaction cp4 20:11 Drug: Losartan PO 50 mg PO once Route: PO; cp4 21:03 Follow up: Response: No adverse reaction cp4 Disposition Summary: 10/06/24 20:05 Hospitalization Ordered Notes: Hospitalization Status: Inpatient Admission kb Provider: Willie Garica Location: Telemetry/[facility] (Inpatient) kb Condition: Stable kb Problem: new kb Symptoms: are unchanged kb Bed/Room Type: Standard kb Room Assignment: 404(10/06/24 20:56) lg3 Diagnosis - NSTEMI kb Forms: - Medication Reconciliation Form kb - SBAR form kb - Leadership Thank You Letter kb Signatures: Dispatcher [employer] Radha Aleman, MICHELE-C FIRE PREVENTION RESEARCH ENGINEER-Monica Arguelles RN RN lg3 Nancy Demarco RN RN ko1 Mai Edwards cp4 Corrections: (The following items were deleted from the chart) 17:57 17:57 BASIC METABOLIC PANEL+C.LAB.BRZ ordered. EDMS EDMS 17:57 17:57 CBC+H.LAB.BRZ ordered. EDMS EDMS 17:57 17:57 D-DIMER+COAG.LAB.BRZ ordered. EDMS EDMS 17:57 17:57 HEPATIC FUNCTION+C.LAB.BRZ ordered. EDMS EDMS 17:57 17:57 MAGNESIUM+C.LAB.BRZ ordered. EDMS EDMS 17:57 17:57 PROBNP+C.LAB.BRZ ordered. EDMS EDMS 17:57 17:57 PROTIME (+INR)+COAG.LAB.BRZ ordered. EDMS EDMS : 17:57 Troponin High Sensitivity+C.LAB.BRZ ordered. EDMS EDMS 17: 17:57 Chest Single View+RAD.RAD.BRZ ordered. EDMS EDMS 20:56 20:05 kb lg3
[2024-10-06] MEDS: ENOXAPARIN 80 MG/0.8 ML SQ SCH (22:32)
[2024-10-06 22:51] VITALS: BMI 26.5
[2024-10-07] MEDS: AMLODIPINE 5 MG TAB PO ONE (01:08)
[2024-10-07 06:27] LABS: Absolute Eosinophils 0.1 K/uL (0-0.5); Absolute Lymphocytes (CBC) 2.2 K/uL (0.7-4.9); Absolute Monocytes 0.7 K/uL (0.1-1.3); Absolute Neutrophil 5.3 K/uL (1.8-8.0); Basophils % 0.6 % (0-1.3); Eosinophils % 1.5 % (0-4.4); Hematocrit 40.6 % (36.0-45.0); Hemoglobin 13.7 g/dL (12.0-15.0); Lymphocytes % 26.6 % (15.3-44.8); MCH 30.4 pg (27.0-35.0); MCHC 33.7 g/dL (32.0-36.0); MCV 90.3 fL (80-100); MPV 8.7 fL (7.6-11.3); Monocytes % 7.8 % (3.3-12.3); Neutrophils % 63.5 % (41.7-73.7); Nucleated Red Blood Cells % 0.1 % (0-0); Platelets 259 thou/uL (152-406); RBC Red Blood Cell Count 4.49 M/uL (3.86-4.86); Red Cell Distribution Width 14.4 % (12.1-15.2)
[2024-10-07 06:36] LABS: Anion Gap 6.4 mEq/L (5.0-15.0); Potassium 3.4 mEq/L (3.5-5.1)
[2024-10-07] MEDS ORDERED: LOSARTAN POTASSIUM 50 MG TABLET PO SCH (09:00)
[2024-10-07] MEDS: POTASSIUM CL SA 10 MEQ TAB PO ONE (09:05)
[2024-10-07] MEDS: ATORVASTATIN 40 MG TAB PO SCH (09:06)
[2024-10-07] MEDS: LOSARTAN POTASSIUM 50 MG TABLET PO SCH (09:06)
[2024-10-07] MEDS: ASPIRIN EC 81 MG TAB PO SCH (09:07)
[2024-10-07] MEDS: NITROGLYCERIN 0.4 MG/TAB SL ONE (15:15)
[2024-10-07] MEDS: METOPROLOL XL 50 MG TAB PO ONE (15:16)
[2024-10-07] MEDS: ENOXAPARIN 80 MG/0.8 ML SQ SCH (19:59)
--- NOTE | 2024-10-07 21:22 | HP ---
Date of Admission: 10/06/2024 Chief Complaint: Chest pain, shortness of breath, high blood pressure. History Of Present Illness: This is a 69-year-old pleasant female patient who takes her blood pressu re and cholesterol medication on a regular basis, was in her usual state of health until or Tuesday of this week. She noted that within 5 minutes after she was getting on her exercise bicycle, she was getting tired and short of breath and she had to stop her exercise and she just was not feeli ng normal. She also noted that she was having some shortness of breath with normal daily activity in the house and that became obvious yesterday along with some very mild chest discomfort describing as chest tightness or pressure type of feeling in the precordial region. She was also having some head ache in the last 2-3 days and noted that her blood pressure was higher than normal at home in the las t 2-3 days. So, with all these concerns, she came to emergency room after she was evaluated. I was contacted and the patient was admitted to the hospital with non-STEMI. After I was contacted from em ergency room, the patient was started on aspirin and therapeutic dose of Lovenox, her heart rate was around 55, so we did not start her on any metoprolol. With all the necessary intervention, the patie lisa has felt better this morning and was asymptomatic when I saw her. This morning when I saw her, shea medina was asymptomatic and her was with her at bedside with her. Allergies: TO AMOXICILLIN CAUSING ANAPHYLACTIC REACTION. Medications At Home: She takes atorvastatin 20 mg daily at bedtime, losartan 25 mg daily at bedtime. Review of Systems: Cardiovascular: As mentioned above. All other systems reviewed and negative. Past Medical History: The patient had COVID-19 infection in May of 2024. Past medical history is significant for allergic rhinitis, impaired fasting glucose, hypertension, hyperlipidemia, liver cys t, renal cyst, and osteoarthritis at multiple sites. Past Surgical History: Cholecystectomy and hysterectomy. Family History: Father , had Alzheimer's disease. Mother ; had AK, diabetes, and stroke. Emerson peterson has diabetes. Sister is alive and well. Social History: Negative for smoking. Use of alcohol occasional. Physical Examination: Vital Signs: This morning when I saw her, last temperature was 97.8, pulse 64, respiratory rate 18, blood pressure 133/69. General: Awake, alert, oriented, not in distress. HEENT: Head atraumatic, normocephalic. Conjunctivae nonerythematous. Sclerae white. Mouth, no thr ush or edema noted. Ears/Nose, no mass, lesion, discharge noted. Neck: Supple. No JVD, lymph nodes, bruit, thyromegaly noted. Lungs: Bilateral good equal air entry. Clear to auscultation. No rhonchi. No rales. Heart: Normal heart sounds, no murmur or gallop. Abdomen: Soft, bowel sounds normal. No guarding, rigidity, tenderness, mass, hepatosplenomegaly, dis tention, or bruit noted. Extremities: No leg edema. No calf tenderness. Skin: No rash, ulcer, cellulitis. Lymphatics: No lymph node enlargement in neck, supraclavicular, infraclavicular region. Neuro: No focal neurological deficit. Chest: Unremarkable. External Genitalia: Deferred. Rectal: Deferred. Laboratory Data: Yesterday, white count 8, hemoglobin 13.9, platelets 259. This morning, white coun t 8.4, hemoglobin 13.7, platelets 259. For chemistry yesterday, sodium 144, potassium 3.2, chloride 112, bicarb 29, BUN 13, creatinine 0.58, glucose 147. Liver function tests unremarkable. First trop onin 146.7, second troponin 1479, and third troponin 945 this morning. Lipid profile this morning, t riglyceride 101, total cholesterol 145, LDL 66, HDL 59. Her chemistry this morning, sodium 142, pota ssium 3.4, chloride 111, bicarb 28, BUN 11, creatinine 0.48, glucose 98. EKG reviewed. Chest x-ray, no acute cardiopulmonary changes. Impression: 1.Nrq-LR-mbragnojv myocardial infarction. 2.Hypokalemia. 3.Hypertension. 4.Hyperlipidemia. 5.Impaired fasting glucose. 6.Osteoarthritis, multiple sites. Plan: We will go ahead and admit the patient to hospital for further evaluation and management of th is problem. The patient is appropriate for inpatient and is expected to spend 2 midnights in [facility]. The patient was admitted to the hospital with non-STEMI and was started on aspirin and Lovenox. Lovenox was 1 mg/kg subcutaneous injection every 12 hours and we will continue that along with 81 mg aspirin. Her heart rate was on the low side, so we did not start her on any beta-bryant therapy yes terday and after I saw her today, she had episode of chest pain and neck pain and at that time her he art rate was 75, blood pressure was 148/76, and the patient was given metoprolol 25 mg p.o. and subli ngual nitroglycerin x1 dose and this actually has resulted in relief of her symptoms. EKG was repeat ed, and I have reviewed an EKG, and steam and gas turbine assembler was notified as well. The patient will be kept n.p. o. after midnight for cardiac cath. The procedure to be done tomorrow and I have gone over all these details with the patient and her when I saw her at hospital today. I have also called and c ommunicated with our steam and gas turbine assembler, Dr. Ferreira, and details were discussed with him as well. For hype rtension, we will continue her antihypertensive medication, losartan and I have added amlodipine with parameters to hold for systolic blood pressure less than 130. For hyperlipidemia, we will increase her statin therapy to high-dose statin therapy. Total time spent today 85 minutes including review of last office visit record from 05/31/2024, commu nication with the emergency room provider, communication with steam and gas turbine assembler, and review of emergency r oom visit record, and performing today's evaluation and management. GARY/KADIE Voice ID: [id number]
[2024-10-08] MEDS ORDERED: NITROGLYCERIN/D5W 50 MG/250 ML BTL IV ONE (07:00)
[2024-10-08] MEDS ORDERED: HEPARIN 5000 UNIT/ML 1 ML VIAL ONE (07:00)
[2024-10-08] MEDS ORDERED: HEPARIN 10,000 UNIT/10 ML VIAL IV ONE (07:05)
[2024-10-08] MEDS ORDERED: CLOPIDOGREL 75 MG TABLET ONE (07:05)
[2024-10-08] MEDS ORDERED: TICAGRELOR 90 MG TABLET PO ONE (07:05)
[2024-10-08] MEDS ORDERED: LIDOCAINE 1% 20 ML MDV ONE (07:05)
[2024-10-08] MEDS ORDERED: ASPIRIN 325 MG TAB ONE (07:05)
[2024-10-08] MEDS ORDERED: HEPA 1000U/500MLS 2,000 UNIT/1,000 ML BAG IV ONE (07:05)
[2024-10-08] MEDS ORDERED: MIDAZOLAM HCL 2 MG/2 ML INJ ONE (07:06)
[2024-10-08] MEDS ORDERED: FENTANYL CITR 100 MCG/2 ML ONE (07:06)
[2024-10-08] MEDS ORDERED: ATROPINE SULF 1 MG/10 ML SYR IV ONE (07:06)
[2024-10-08] MEDS ORDERED: NA CHLORIDE 0.9% 500 ML ONE (07:08)
--- NOTE | 2024-10-08 09:13 | P.CNS ---
Date of Consult: 10/08/24 Chief Complaint: chest pain History of Present Illness: Patient with PMH of HTN, presented with worsening SOB, MURILLO and occasional chest pain that got worse prior to admission, denies any other cardiac symptoms. Allergies Penicillins Allergy (Verified 10/06/24 22:48) Anaphylaxis Home medications list reviewed: Yes Home Medications: Atorvastatin Calcium [Lipitor] 20 mg PO BEDTIME 10/06/24 Losartan Potassium [Cozaar] 25 mg PO BEDTIME 10/06/24 - Past Medical/Surgical History Diabetic: No -: HTN -: Hypercholesterolemia -: hysterectomy -: cholecystectomy - Family History Mother Medical History: Heart disease, Diabetes, Stroke Father Medical History: Other (see notes) Notes: Alzheimer's - Social History Alcohol use: Yes CD- Drugs: No Caffeine use: Yes Place of Residence: Home Review of Systems 10-point ROS is otherwise unremarkable Physical Examination Temp Pulse Resp BP Pulse Ox 98.1 F 64 16 113/64 96 10/08/24 04:00 10/08/24 08:55 10/08/24 08:55 10/08/24 08:55 10/08/24 04:00 General: Alert, In no apparent distress HEENT: Atraumatic, PERRLA, Mucous membr. moist/pink, EOMI, Sclerae nonicteric Neck: Supple, 2+ carotid pulse no bruit, No LAD, Without JVD or thyroid abnormality Respiratory: Clear to auscultation bilaterally, Normal air movement Cardiovascular: Regular rate/rhythm, Normal S1 S2 Gastrointestinal: Normal bowel sounds, No tenderness Musculoskeletal: No tenderness Integumentary: No rashes Neurological: Normal gait, Normal speech, Normal tone, Normal affect Lymphatics: No axilla or inguinal lymphadenopathy - Problems (1) NSTEMI (non-ST elevated myocardial infarction) Current Visit: Yes Status: Acute Plan: Patient got her coronary angiogram done today and PCI of LAD with Synergy MAUREEN ASA 81 mg daily Brilinta 90 mg po BID for 12 months Lipitor 40 mg daily (2) HTN (hypertension) Current Visit: Yes Status: Acute Plan: continue losartan and Norvasc. (3) HLD (hyperlipidemia) Current Visit: Yes Status: Acute Plan: continue lipitor 40 mg daily
[2024-10-08 12:35] VITALS: O2SAT 97
[2024-10-08] MEDS: AMLODIPINE 5 MG TAB PO SCH (12:43)
[2024-10-08 13:31] VITALS: TEMP 98.2
[2024-10-08] MEDS: CLOPIDOGREL 75 MG TABLET PO ONE (15:47)
[2024-10-08 16:36] VITALS: BP 120/61
[2024-10-08] MEDS ORDERED: TICAGRELOR 90 MG TABLET PO SCH (20:00)
--- NOTE | 2024-10-09 00:10 | OP ---
Date of Procedure: 10/08/2024 Surgeon: Luis Ferreira Procedures Performed: 1.Left heart catheterization. 2.Selective coronary angiogram. 3.Percutaneous coronary intervention of the left anterior descending with Synergy 2.5 x 32 mm drug-e luting stent overlapped with 2.5 x 12 mm drug-eluting stent. Indication For Procedure: [id number] MD. Complications: None. Estimated Blood Loss: Less than 50 cc. Access: Right radial, closed by TR band. Sedation Time: 30 minutes with 1 of Versed and 25 of fentanyl. Description Of Procedure: After risks, benefits, and alternatives were explained to the patient, the patient agreed to proceed with procedure and signed informed consent. The patient was brought back to the construction or leak gang laborer, prepped and draped in sterile fashion. Time-out was performed. Sedation was admini stered. Next, right radial access was obtained using ultrasound-guided micropuncture technique. Tig er 4 catheter was advanced over a J-wire to the LV cavity. LVEDP was obtained. Pullback did not shantelle w any gradient. Same catheter was used for selective angiogram of the left and right coronary system s. At the end of procedure, catheter was exchanged with an XB LAD 3.0 mm guide. Heparin was adminis tered. ACT was therapeutic. Runthrough wire was passed across the LAD. Pre-dilated the lesion with an NC 2.5 mm balloon. Next, Synergy 2.5 x 32 mm drug-eluting stent was placed across the lesion. R epeat angiogram shows distal edge disease, so another Synergy 2.5 x 12 mm drug-eluting stent was plac ed and overlapped with the first stent, that was postdilated with an NC 3.0 mm balloon. Final angiog eliane shows ILENE-3 flow. The catheter was removed over a J-wire. Sheath was removed. TR band was tirso lied. Hemostasis achieved. The patient was moved back to recovery in stable condition. Findings: 1.Left main: Normal. 2.LAD: Mid 99% disease, followed by diffuse 50% to 60% disease, status post PCI as above. 3.Left circumflex: Mild luminal irregularities. 4.RCA: Large, dominant. Mild luminal irregularities. 5.LVEDP is 13 mmHg. Assessment: Significant mid LAD disease, status post PCI with Synergy 2.5 x 32 overlapped with 2.5 x 12 mm drug-eluting stent. Plan: 1.Continue aspirin 81 mg daily for life. 2.Brilinta 180 x1 was given in the construction or leak gang laborer, Plavix 600 to be given later today and then continue Pl avix 75 mg daily for 12 months. JENNIFER/KADIE Voice ID: [id number] Report ID: [id number]
--- NOTE | 2024-10-09 12:05 | EKG ---
Test Date: 2024-10-06 Test Time: 18:33:18 Saw Edge Fuser Circular: ARMANI MEASUREMENT RESULTS: Intervals: Rate: 59 NJ: 170 QRSD: 90 QT: 420 QTc: 415 [place]: P: 66 NJ: 170 QRS: 45 T: 83 INTERPRETIVE STATEMENTS: Sinus bradycardia Possible Anterior infarct, age undetermined Abnormal ECG Compared to ECG 12/29/2023 09:40:15 Sinus rhythm no longer present Right-axis deviation no longer present Myocardial infarct finding still present Electronically Signed On 10-09-24 12:03:25 COMMUNITY MUSIC THERAPIST by Luis Ferreira
--- NOTE | 2024-10-10 11:16 | ECHO ---
HEIGHT: 5 ft 7 in WEIGHT: 169 lb 6.4 oz DATE OF STUDY: 10/08/[address]: Raj Garcia MD 2-DIMENSIONAL: YES M.MODE: YES DOPPLER: YES COLOR FLOW: YES TDS: NO PORTABLE: YES DEFINITY: NO BUBBLE STUDY: NO DIAGNOSIS: NSTEMI CARDIAC HISTORY: CATHERIZATION:YES SURGERY: NO PROSTHETIC VALVE: NO PACEMAKER: NO MEASUREMENTS (cm) DIASTOLIC (NORMALS) SYSTOLIC (NORMALS) IVSd 1.1 (0.6-1.2) LA Diam 2.7 (1.9-4.0) LVEF 60-65% LVIDd 4.3 (3.5-5.7) LVIDs 2.8 (2.0-3.5) %FS 34% LVPWd 1.1 (0.6-1.2) Ao Diam 2.6 (2.0-3.7) 2 DIMENSIONAL ASSESSMENT: RIGHT ATRIUM: NORMAL LEFT ATRIUM: NORMAL RIGHT VENTRICLE: NORMAL LEFT VENTRICLE: NORMAL TRICUSPID VALVE: NORMAL MITRAL VALVE: NORMAL PULMONIC VALVE: NORMAL AORTIC VALVE: NORMAL PERICARDIAL EFFUSION: NONE AORTIC ROOT: NORMAL LEFT VENTRICULAR WALL MOTION: NORMAL. DOPPLER/COLOR FLOW: NORMAL. COMMENTS: 1. NORMAL LEFT VENTRICULAR SYSTOLIC FUNCTION. LEFT VENTRICULAR EJECTION FRACTION 60-65%. NORMAL WALL MOTION. 2. NORMAL DIASTOLIC FUNCTION. TECHNOLOGIST: POWER CALLEJAS
--- NOTE | 2024-10-12 15:48 | EKG ---
Test Date: 2024-10-07 Test Time: 14:58:47 [employer] Maintainer: DANILO MEASUREMENT RESULTS: Intervals: Rate: 67 [place]: 164 QRSD: 84 QT: 414 QTc: 437 [place]: P: 62 [place]: 164 QRS: 60 T: 93 INTERPRETIVE STATEMENTS: Normal sinus rhythm Normal ECG Compared to ECG 10/06/2024 18:33:18 Sinus bradycardia no longer present Myocardial infarct finding no longer present Electronically Signed On 10-12-24 15:47:11 [employer] by Luis Ferreira
== END 2024-10-08 19:56 | disposition home or self-care (01) | DRG 322 ==
LOC: ER 17:49 → ERHOLD 20:14 → 4TH 21:48
PROVIDERS: ADMIT Internal Medicine; ATTEND Internal Medicine
PROC: 027035Z Dilation of Coronary Artery, One Artery with Two Drug-eluting Intraluminal Devices, Percutaneous Approach (ICD-10-PCS; principal; 2024-10-08)
PROC: 4A023N7 Measurement of Cardiac Sampling and Pressure, Left Heart, Percutaneous Approach (ICD-10-PCS; 2024-10-08)
PROC: B2111ZZ Fluoroscopy of Multiple Coronary Arteries using Low Osmolar Contrast (ICD-10-PCS; 2024-10-08)
DX: I21.4 Non-ST elevation (NSTEMI) myocardial infarction (principal); I10 Essential (primary) hypertension; E87.6 Hypokalemia; J30.9 Allergic rhinitis, unspecified; E78.00 Pure hypercholesterolemia, unspecified; M19.09 Primary osteoarthritis, other specified site; R73.01 Impaired fasting glucose; Z88.1 Allergy status to other antibiotic agents; Z86.16 Personal history of COVID-19; Z90.49 Acquired absence of other specified parts of digestive tract; Z90.710 Acquired absence of both cervix and uterus; Z79.899 Other long term (current) drug therapy
CPT/HCPCS: 36415; 71045; 76937; 80048; 80061; 80076; 83735; 83880; 84484; 85025; 85379; 85610; 93005; 93306; 93458; 96372; 99152; 99153; 99285; C1725; C1877; C1893; C9600; J0461; J1644; J2003; J2250; J3010; J7040; Q9967